=== PATIENT | female | born 1990 | race Caucasian/White ===

== ENCOUNTER 2020-03-29 15:21 | Emergency (ER) | payer SELFPAY ==
--- NOTE | 2020-03-29 15:55 | RAD ---
Exam:3 views right wrist HISTORY: Fall. Pain. Injury. COMPARISON: None FINDINGS: Intercarpal and radiocarpal joint spaces are preserved. No fracture, cortical irregularity or periosteal reaction. No significant soft tissue swelling. IMPRESSION: No fracture
== END 2020-03-29 16:05 | disposition home or self-care (01) ==
LOC: MADERS 15:21
DX: S63.501A Unspecified sprain of right wrist, initial encounter (principal); W18.30XA Fall on same level, unspecified, initial encounter

== ENCOUNTER 2021-01-11 20:21 | Outpatient (CLI) | payer SELFPAY ==
[2021-01-13 03:23] LABS: Chlamydia by PCR Not Detected (NotDetected); GC by PCR Not Detected (NotDetected)
== END 2021-01-11 20:22 | disposition home or self-care (01) ==
LOC: MADLAB 20:21
PROVIDERS: ATTEND Family Medicine
DX: Z11.3 Encounter for screening for infections with a predominantly sexual mode of transmission (principal)
CPT/HCPCS: 87491; 87591; 88142; G0123